=== PATIENT | female | born 1985 | race Two or more races ===

== ENCOUNTER 2016-12-13 08:14 | Emergency (ER) | payer MEDICAID ==
[2016-12-13 09:23] LABS: CALCIUM 9.3 mg/dL (8.5-10.1); CARBON DIOXIDE 25.1 mmol/L (21-32); CHLORIDE SERUM 102 mmol/L (98-107); CREATININE SERUM 0.8 mg/dL (0.6-1.0); GFR1 > 60 mL/min; GLUCOSE SERUM 150 mg/dL (74-106); POTASSIUM SERUM 3.6 mmol/L (3.5-5.1); SODIUM SERUM 139 mmol/L (136-145)
[2016-12-13 09:24] LABS: BASOPHIL % 0.6 % (0-2); PLATELET COUNT 363 x10^3mcL (130-400); RED CELL DISTRIBUTION WIDTH 13.5 % (11.5-14.5)
[2016-12-13 09:29] LABS: ALBUMIN 4.3 g/dL (3.4-5.0); ALKALINE PHOSPHATASE 87 U/L (46-116); ALT/SGPT 49 U/L (14-59); AST/SGOT 24 U/L (15-37); BILIRUBIN TOTAL 0.3 mg/dL (0.20-1.00); LIPASE 91 IU/L (73-393)
[2016-12-13 09:35] LABS: AMYLASE 21 U/L (25-115)
[2016-12-13 10:25] LABS: microscopic required? YES; urine erythrocyte NEGATIVE (NEGATIVE)
[2016-12-13 13:19] VITALS: BP 132/90
== END 2016-12-13 13:30 | disposition home or self-care (01) ==
LOC: ED 08:14
PROVIDERS: Emergency Medicine Emergency Medical Services
DX: D36.7 Benign neoplasm of other specified sites (principal)
CPT/HCPCS: 83880; J1885; J2270; J2405; Q0092

== ENCOUNTER 2016-12-15 12:36 | Emergency (ER) | payer MEDICAID ==
[~2016-12-15] VITALS: Ht 160 cm; Wt 75.1 kg
[2016-12-15 15:12] VITALS: BP 126/80
== END 2016-12-15 15:12 | disposition home or self-care (01) ==
LOC: ED 12:36
DX: K59.00 Constipation, unspecified (principal); D27.0 Benign neoplasm of right ovary
CPT/HCPCS: J1885

== ENCOUNTER 2019-07-03 11:41 | Emergency (ER) | payer SELFPAY ==
[~2019-07-03] VITALS: Ht 160 cm; Wt 76.7 kg
[2019-07-03 11:44] VITALS: Ht 160 cm; Wt 76.7 kg
[2019-07-03 13:38] VITALS: BP 128/89
== END 2019-07-03 13:38 | disposition home or self-care (01) ==
LOC: ED 11:41
DX: M62.830 Muscle spasm of back (principal)
CPT/HCPCS: 20552; J2001

== ENCOUNTER 2019-07-06 02:35 | Emergency (ER) | payer SELFPAY ==
[~2019-07-06] VITALS: Ht 160 cm; Wt 77.6 kg
[2019-07-06 02:43] VITALS: Ht 160 cm; Wt 77.6 kg
[2019-07-06 03:32] LABS: BASOPHIL % 0.4 % (0-2); PLATELET COUNT 325 x10^3mcL (130-400); RED CELL DISTRIBUTION WIDTH 13.6 % (11.5-14.5)
[2019-07-06 03:43] LABS: microscopic required? YES; urine erythrocyte TRACE (NEGATIVE)
[2019-07-06 03:59] LABS: CARBON DIOXIDE 25.2 mmol/L (21-32); CHLORIDE SERUM 100 mmol/L (98-107); CREATININE SERUM 0.8 mg/dL (0.6-1.0); GFR1 > 60 mL/min; GLUCOSE SERUM 124 mg/dL (74-106); POTASSIUM SERUM 3.9 mmol/L (3.5-5.1); SODIUM SERUM 136 mmol/L (136-145)
[2019-07-06 04:04] LABS: ALKALINE PHOSPHATASE 73 U/L (46-116); ALT/SGPT 30 U/L (14-59); AST/SGOT 18 U/L (15-37); BILIRUBIN TOTAL 0.34 mg/dL (0.20-1.00); TOTAL PROTEIN, SERUM 8.2 g/dL (6.4-8.2)
[2019-07-06 05:49] VITALS: BP 134/95
== END 2019-07-06 05:49 | disposition home or self-care (01) ==
LOC: ED 02:35
PROVIDERS: Emergency Medicine
DX: N39.0 Urinary tract infection, site not specified (principal); Z98.890 Other specified postprocedural states
CPT/HCPCS: J0696; J1885; J7030